=== PATIENT | female | born 1990 | race Two or more races ===

== ENCOUNTER → 2024-10-02 | Outpatient (BNVA) | payer MEDICAID, SELFPAY | END | disposition home or self-care (01) | PROVIDERS: PCP Nurse Practitioner Primary Care; Referring Provider Nurse Practitioner Primary Care; Visit Provider Nurse Practitioner Primary Care | DX: Z11.3 Encounter for screening for infections with a predominantly sexual mode of transmission (principal); Z11.9 Encounter for screening for infectious and parasitic diseases, unspecified; Z01.812 Encounter for preprocedural laboratory examination | CPT/HCPCS: 99213 ==